=== PATIENT | male | born 1990 | race Caucasian/White ===

== ENCOUNTER 2019-01-16 20:04 | Emergency (ER) | payer MEDICAID, OTHER ==
[~2019-01-16] VITALS: Ht 175.3 cm; Wt 52.6 kg
--- NOTE | 2019-01-16 20:25 | NUR ---
Patient to ER bed 8 to gown for evaluation. Side rails up. Report given to Ann-Marie BETHEA.
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
[2019-01-16 20:30] VITALS: BP_SYST 129
--- NOTE | 2019-01-16 21:37 | NUR ---
ER Dr. Harley at bedside examining patient.
--- NOTE | 2019-01-16 21:53 | NUR ---
Report given to [facility].
--- NOTE | 2019-01-16 21:55 | NUR ---
Medications were given, pt tolerated well. No adverse reaction, will continue to monitor.
[2019-01-16] MEDS ORDERED: ONDANSETRON 4 MG ODT TAB PO ONE (22:00)
[2019-01-16] MEDS ORDERED: IBUPROFEN 600 MG TABLET PO ONE (22:00)
--- NOTE | 2019-01-16 23:29 | NUR ---
patient moved to [facility].
[2019-01-17] VITALS: BP_SYST 129
--- NOTE | 2019-01-17 00:01 | NUR ---
Patient given written and verbal discharge instructions and verbalizes understanding. ER MD discussed with patient the results and treatment provided. Patient in stable condition. ID arm band removed. Patient educated on pain management and to follow up with PMD. Pain Scale 0. Opportunity for questions provided and answered. Medication side effect fact sheet provided.
== END 2019-01-17 00:01 | disposition home or self-care (01) ==
LOC: SED 20:04
DX: F07.81 Postconcussional syndrome (principal); R42 Dizziness and giddiness; R11.0 Nausea
CPT/HCPCS: 70450; 99284; Q0162

== ENCOUNTER 2019-03-06 07:10 | Day surgery (SDC) | payer MEDICAID ==
[~2019-03-06] VITALS: Ht 175.3 cm; Wt 72.6 kg
[2019-03-06] MEDS ORDERED: MORPHINE 4 MG/ML INJ. SYRINGE IVP PRN (10:45)
[2019-03-06] MEDS ORDERED: ONDANSETRON HCL 4 MG/2 ML VIAL IM PRN (10:45)
[2019-03-06] MEDS ORDERED: MEPERIDINE HCL/PF 25 MG/ML DISP.SYRIN IM PRN (10:45)
[2019-03-06 13:02] VITALS: BP_SYST 130
== END 2019-03-06 13:05 | disposition home or self-care (01) ==
LOC: SMU 07:10 → SDS 07:10
PROVIDERS: ATTEND Otolaryngology
DX: J34.2 Deviated nasal septum (principal); J34.89 Other specified disorders of nose and nasal sinuses; J30.1 Allergic rhinitis due to pollen; Z90.49 Acquired absence of other specified parts of digestive tract
CPT/HCPCS: 30140; 30520; 88305; 88311; J7120